=== PATIENT | male | born 1960 | race Caucasian/White ===

== ENCOUNTER 2019-12-26 18:00 | Emergency (ER) | payer BC, SELFPAY ==
[2019-12-26 18:08] VITALS: BP 169/103; PULSE 103; RESP 18; TEMP 37.1; O2SAT 95
--- NOTE | 2019-12-26 18:15 | DI.RAD_ITS ---
EXAM: XR HIP RT COMPLETE AP PELVIS CLINICAL HISTORY: Hip pain TECHNIQUE: COMPARISON: No exams were available for comparison FINDINGS: Two views were obtained. No hip fracture seen. Mild narrowing cartilaginous joint spaces of both hi ps noted superiorly. Mild acetabular spurring and subchondral sclerosis. IMPRESSION: Degenerative changes. No evidence of acute fracture.
--- NOTE | 2019-12-26 18:17 | ED.GENADUL_ITS ---
Discharge Plan Disposition Patient Disposition: HOME Condition: Stable Discharge Details Chief Complaint: Orthopedic Clinical Impression: Degenerative joint disease of right hip Primary Care Provider: Elly Bravo ED Provider: Dixie Shultz Discharge Instructions Instructions: Hip Pain (ED) Additional Instructions: Follow up with primary care provider in 3-5 days. Return to ED sooner if any worsening or concerns. Increase oral fluids. Please take Tylenol or Ibuprofen with food every 4-6 hours as needed for pain and swelling. Your x-ray shows moderate degenerative changes of the right hip hypertrophic bony changes of the Acetabelum most evident laterally. Mild narrowing of the right hip compartment. D-dimer lab we becky today was within normal limits. We cannot definitively rule out DVT as ultrasound is unavailable on the evenings and weekends. Please follow-up with your PCP Sunday to schedule an outpatient ultrasound as needed. Please return to the ED for any worsening or concerns. Referrals: Elly Bravo, ICU STAFF NURSE [Primary Care Provider] - Medical Decision Making 59-year-old male presents to the ED with a complaint of right hip pain and thigh swelling which he noticed approximately 8 days ago. He states that pain is worsened with movement in the a.m. when getting out of bed. He denies any trauma or falls. He was seen at [facility] today by his PCP who sent him here for rule out DVT and further evaluation. He denies any chest pain or shortness of breath. Negative Homans sign. He does have some posterior thigh swelling which is nontender to palpation, non-erythemic, non-warm. He denies any recent long trips in a plane or car, no recent travel. He is an everyday smoker. D-dimer is within normal limits. At this time I do not think with clinical picture that this is not a DVT although without ultrasound this cannot be definitively ruled out at this time. Is not consistent with cellulitis. No fever no area of induration, nontender to palpation. Imaging protocol: XR Right hip with pelvis when performed. Views: 2 or 3 views. COMPARISON: No relevant prior studies available. FINDINGS: Bones/joints: Bone mineralization is normal. No acute fracture is identified in the pelvis or right hip. There hypertrophic bony changes of the acetabulum most evident laterally at the anterior inferior iliac spine. There is mild narrowing of the right hip superior joint compartment. No blastic or bony destructive lesions are identified. There is no evidence of dislocation of either hip, symphysis pubis or sacroiliac joints. There are moderate degenerative changes of the lower visualized lumbar spine. Soft tissues: Unremarkable. IMPRESSION: Moderate degenerative changes of the right hip. Discussed results with patient and home care, verbalized understanding. Instructed to alternate ibuprofen and Tylenol or naproxen alternate ice and heat. Return to the ED for any chest pain, shortness of breath worsening swelling or any concerns. Discussed the need to follow-up with PCP for an outpatient ultrasound. Verbalized understanding. Differential diagnosis includes but not limited to DVT, groin strain, degenerative joint disease, hamstring strain, HPI General Mode of arrival: ambulatory . Date/Time Provider Initiated Documentation: 12/26/19 18:01 . Limitations to Documentation: no limitations . Information obtained by: patient . HPI Narrative: 59-year-old male presents to the ED with a complaint of right hip pain and thigh swelling which he noticed approximately 8 days ago. He states that pain is worsened with movement in the a.m. when getting out of bed. He denies any trauma or falls. He was seen at [facility] by his PCP who sent him here for rule out DVT and further evaluation. He denies any chest pain or shortness of breath. Negative Homans sign. He denies any recent long trips in a plane or car, no recent travel. He is an everyday smoker. Related Data Allergies Allergy/AdvReac Type Severity Reaction Status Date / Time No Known Allergies Allergy Unverified 12/26/19 17:24 General Stated Complaint: Orthopedic SUDEEP: 3 Review of Systems Narrative: Constitutional: Negative for weight loss, alert and oriented, well groomed, normal body habitus, appears comfortable. HEENT: Denies trauma, headaches, blurry vision, nasal discharge, sore throat, trouble swallowing. Chest: Denies chest pain, palpitations, irregular rhythm, hypertension. Respiratory: Denies Shortness of breath, cough, hemoptysis. GI: Denies abdominal pain, nausea, vomiting, diarrhea, constipation. : Denies dysuria, hematuria, flank pain, rectal bleeding. Extremities: Complaining of right thigh and hip pain Neuro: Denies dizziness, blurry vision, weakness, syncope, headache or facial numbness. Hematologic: Denies easy bruising, intolerance to heat or cold, hair loss. All systems reviewed & are unremarkable except as noted in HPI and below PFSH Social History Smoking/Tobacco Use Status: Current every day Tobacco Type: cigarettes Tobacco: How many years used: 30 Alcohol Intake: current Alcohol Intake frequency: 3 or more drinks per day Drug use: Never Substance use type: does not use Do you feel safe at home: Yes Do you feel safe in your relationship?: Yes Exam Narrative Exam Narrative: Constitutional: Alert and oriented x3. Appears stated age. Normal body habitus. Head: Normocephalic, no trauma. Eyes: Pupils PERRLA, Red reflex noted, EOM's intact. Eyelids symmetrical without lesions, discharge, or swelling. ENT: Bilateral TM's WNL, External ear normal to inspection, no mastoid TTP, swelling, or erythema, Nasal turbinates WNL, no nasal discharge. Normal dentition, Posterior pharynx WNL, no exudate. Chest: RRR, Normal S1, S2, distal pulses intact. Resp: Lungs clear to auscultation bilaterally, no wheezes, rales, or rhonchi. Musculoskeletal: Normal gait, 5/5 strength to all four extremities. Negative Homans sign right leg. Nontender right hip to palpation. Intact dorsal pedal pulses. Skin: No suspicious rashes or lesions. Capillary refill less than 2 sec. Neurologic: Cranial nerves II-XII intact. Alert and oriented x 3. DTR's intact. Hematologic/Lymphatic: No ecchymosis, no lymphadenopathy. Course Vital Signs Vital signs: Vital Signs Temperature 37.1 C 12/26/19 18:08 Pulse 103 H 12/26/19 18:08 Respiratory Rate 18 12/26/19 18:08 Blood Pressure 169/103 H 12/26/19 18:08 Pulse Oximetry 95 12/26/19 18:08 Temperature 37.1 C 12/26/19 18:08 Temperature Source Temporal Artery Scan 12/26/19 18:08 Pulse 103 H 12/26/19 18:08 Respiratory Rate 18 12/26/19 18:08 Respiratory Effort 12/26/19 18:11 Blood Pressure 169/103 H 12/26/19 18:08 Pulse Oximetry 95 12/26/19 18:08 Oxygen Delivery Method Room Air 12/26/19 18:08 Oxygen Flow Rate 0 12/26/19 18:08
--- NOTE | 2019-12-26 19:11 | DI.VRAD_ITS ---
PROCEDURE INFORMATION: Exam: XR Right Hip with Pelvis when Performed Exam date and time: 12/26/2019 6:51 PM Age: 59 years old Clinical indication: Hip pain; Right hip TECHNIQUE: Imaging protocol: XR Right hip with pelvis when performed. Views: 2 or 3 views. COMPARISON: No relevant prior studies available. FINDINGS: Bones/joints: Bone mineralization is normal. No acute fracture is identified in the pelvis or right hip. There hypertrophic bony changes of the acetabulum most evident laterally at the anterior inferior iliac spine. There is mild narrowing of the right hip superior joint compartment. No blastic or bony destructive lesions are identified. There is no evidence of dislocation of either hip, symphysis pubis or sacroiliac joints. There are moderate degenerative changes of the lower visualized lumbar spine. Soft tissues: Unremarkable. IMPRESSION: Moderate degenerative changes of the right hip. Dictated and Authenticated by: Jay Groves MD. Ordering:JACKIE Colin MD
[2019-12-26 19:14] LABS: D-Dimer 379 ng/mlFEU (<500)
== END 2019-12-26 19:55 | disposition home or self-care (01) ==
PROVIDERS: Emergency Provider Registered Nurse Emergency; PCP Nurse Practitioner
DX: M16.11 Unilateral primary osteoarthritis, right hip (principal); R22.41 Localized swelling, mass and lump, right lower limb
CPT/HCPCS: 36415; 99284; 73502; 85379

== ENCOUNTER 2019-12-29 09:08 | Outpatient (CLI) | payer BC, SELFPAY ==
--- NOTE | 2019-12-29 11:00 | DI.US_ITS ---
EXAM: US LOWER EXTREMITY VENOUS RT CLINICAL HISTORY: right leg pain and swelling, M79.604, M79.89, ? DVT. TECHNIQUE: Ultrasound performed using standard protocol. COMPARISON: No exams were available for comparison FINDINGS: Duplex venous ultrasound was performed according to the usual protocol. The deep veins are freely com pressible throughout and there is normal flow augmentation with manual calf compression. 2D and Doppl er evaluation are unremarkable. IMPRESSION: No evidence of deep venous thrombosis of the right lower extremity DATA REPOSITORY:
== END 2019-12-29 09:28 ==
PROVIDERS: PCP Nurse Practitioner; Visit Provider Nurse Practitioner Family
DX: M79.604 Pain in right leg (principal); R22.41 Localized swelling, mass and lump, right lower limb
CPT/HCPCS: 93971

== ENCOUNTER 2020-02-02 02:16 | Outpatient (CLI) | payer BC, SELFPAY ==
[2020-02-02 12:33] LABS: Hemoglobin A1C 5.3 % (3.8-5.6)
[2020-02-02 12:59] LABS: Calculated LDL 105 mg/dL (<100); Cholesterol 201 mg/dL (<200); HDL Cholesterol 77 mg/dL (40-60); Triglyceride 96 mg/dL (<150)
== END 2020-02-02 02:36 ==
PROVIDERS: PCP Nurse Practitioner; Visit Provider Nurse Practitioner
DX: Z13.6 Encounter for screening for cardiovascular disorders (principal); Z13.1 Encounter for screening for diabetes mellitus
CPT/HCPCS: 36415; 80061; 83036

== ENCOUNTER 2020-02-27 09:28 | Outpatient (CLI) | payer BC, SELFPAY ==
--- NOTE | 2020-02-27 08:45 | DI.RAD_ITS ---
EXAM: XR LUMBAR SPINE COMPLETE CLINICAL HISTORY: eval back etiology of RLE weakness. TECHNIQUE: 2D digital imaging was performed. COMPARISON: No exams were available for comparison FINDINGS: There is mild anterior wedging of the T12 vertebral body. Degenerative disc changes are seen through out. There are endplate osteophytes throughout. There is moderate narrowing of the L3-4 through L5 -S1 disc spaces. No spondylolysis or spondylolisthesis is seen. Facet degenerative changes are pres ent, greatest from L3-4 through L5-S1. IMPRESSION: Degenerative changes, greatest from L3-4 through L5-S1. Mild T12 compression fracture which appears old. DATA REPOSITORY: RADIATION DOSE DELIVERED:
== END 2020-02-27 09:48 ==
PROVIDERS: PCP Nurse Practitioner; Referring Provider Nurse Practitioner; Visit Provider Student in an Organized Health Care Education/Training Program
DX: R29.898 Other symptoms and signs involving the musculoskeletal system (principal); M51.36 Other intervertebral disc degeneration, lumbar region; M51.37 Other intervertebral disc degeneration, lumbosacral region
CPT/HCPCS: 72110

== ENCOUNTER 2020-03-08 01:52 | Outpatient (CLI) | payer BC, SELFPAY ==
--- NOTE | 2020-03-08 06:45 | DI.MRI_ITS ---
EXAM: MR LUMBAR SPINE WO CLINICAL HISTORY: BACK PAIN,RT LEG WEAKNESS,R29.898,M54.9. TECHNIQUE: Multiplanar multisequence MRI of the Lumbar spine was performed. COMPARISON: CR XR LUMBAR SPINE COMPLETE from 02/27/2020 FINDINGS: Bones: The last intervertebral disc space is designated the L5/S1 level for the numbering purpose of this examination. There is an old compression deformity of the superior endplate of T12. Alignment is satisfactory. Degenerative endplate signal changes are seen at L1-L2 and L4-L5. Cord: The conus tip ends at the T12 level. It is of normal size and signal intensity. T12-L1: No disc herniations or bulges are present. No central spinal canal or neural foraminal stenos is. L1-2: There is a mild diffuse disc bulge. No focal disc herniation or central spinal canal stenosis. Mild bilateral neural foraminal stenosis. L2-3: There is a diffuse disc bulge. There is an annular tear seen posteriorly. There are degenerat zainab changes of the facets and hypertrophy of the ligamentum flavum. These all contribute to cause mo derate central spinal canal stenosis. Mild bilateral neural foraminal stenosis. L3-4: There is a diffuse disc bulge. There are hypertrophic changes of the facets and ligamentum fla vum. There is a small synovial cyst on the right projecting into the spinal canal. These all contri bute to cause moderate to severe central spinal canal stenosis. Mild bilateral neural foraminal sten osis. L4-5: There is a diffuse disc bulge. There is a right synovial cyst or right paracentral disc hernia tion causing right lateral recess stenosis and compressing the right L5 nerve root. No central spina l canal stenosis is seen. There is mild left neural foraminal stenosis. L5-S1: No disc herniations or bulges are present. No central spinal canal or neural foraminal stenosi s. Soft tissues: The visualized SI joints and sacrum are well maintained. The paraspinal soft tissues ar e unremarkable. IMPRESSION: 1. Right synovial cyst or right paracentral disc herniation at L4-L5 causing right lateral recess siobhan nosis and compressing the right L5 nerve root. 2. Multilevel degenerative changes in the lumbar spine causing neural foraminal and central spinal ca nal stenosis. Findings are most marked at L2-3 and L3-L4. 3. Old T12 compression deformity. DATA REPOSITORY:
== END 2020-03-08 02:12 ==
PROVIDERS: PCP Nurse Practitioner; Visit Provider Student in an Organized Health Care Education/Training Program
DX: M71.38 Other bursal cyst, other site; M47.816 Spondylosis without myelopathy or radiculopathy, lumbar region; M48.061 Spinal stenosis, lumbar region without neurogenic claudication; M54.9 Dorsalgia, unspecified; R29.898 Other symptoms and signs involving the musculoskeletal system
CPT/HCPCS: 72148

== ENCOUNTER 2020-03-18 00:51 | Outpatient (CLI) | payer BC, SELFPAY ==
--- NOTE | 2020-03-18 07:30 | DI.RAD_ITS ---
EXAM: RF JOINT INJECTION FLUORO GUID CLINICAL HISTORY: RT HIP INJ, RT HIP PAIN,RT LEG WEAKNESS,M25.551,R29.898. TECHNIQUE: 2D and realtime digital imaging was performed. COMPARISON: No exams were available for comparison FINDINGS: Fluoroscopy was provided for guidance with performing a right hip injection. Degenerative changes of the right hip are noted. Please see procedure note for details. Fluoro time: 3 sec, 7.77 mGy RADIATION DOSE DELIVERED:
--- NOTE | 2020-03-18 13:15 | W.PROCNOTE ---
Date of service: 03/18/20 Time of Service: 13:16 Procedure Note Date of procedure: 03/18/20 Procedure: Right Hip Injection with Fluoroscopic Guidance Surgeon/Proceduralist/Physician: Roc Lazcano Procedure Diagnosis: Right Hip Osteoarthritis Procedure Indications: Dev has had persistent pain of the RIGHT hip and groin. Noninvasive measures have been tried. To serve as both diagnostic and therapeutic, an injection under fluoroscopy was recommended. I had discussed the risks of the procedure and the patient elected to proceed. Procedure Description: Dev was greeted in the flouroscopy room. The correct side was identified and the consent was reviewed with the patient and signed. The patient was then placed in the supine position on the fluoroscopy table. The RIGHT hip was then prepped with Chloraprep. The anterolateral injection starting point was identiifed by bony landmarks and fluoroscopy. The skin and soft tissue in the tract of the injection was anesthetized with 1% Lidocaine. A spinal needle was then inserted deep into the hip joint at the level of the lateral femoral neck under fluoroscopic guidance. A small amount of Omnipaque solution was injected to confirm intraarticular placement. Once confirmed, the hip was injected with 6cc of 0.5% Bupivicaine and 80mg of Depo-Medrol. A bandaid was placed on the injection site. The patient tolerated the procedure well and noted improvement in pre-injection pain.
[2020-03-18] MEDS: Bupivacaine 0.5% Pres-Free 10 ML VIAL 6 ML IJ (14:01)
[2020-03-18] MEDS: Omnipaque 300 MG/ML 10 ML BTL IJ (14:02)
[2020-03-18] MEDS: methylPREDNISolone ACETATE 40 MG/ML VIAL IM (14:03)
== END 2020-03-18 01:11 ==
PROVIDERS: PCP Nurse Practitioner; Visit Provider Student in an Organized Health Care Education/Training Program
DX: M25.551 Pain in right hip (principal); M16.11 Unilateral primary osteoarthritis, right hip; R10.31 Right lower quadrant pain
CPT/HCPCS: 20610; 77002; J1030

== ENCOUNTER 2025-02-09 12:42 | Outpatient (CLI) | payer BC, MEDICARE, SELFPAY ==
--- NOTE | 2025-02-09 11:30 | DI.US_ITS ---
Exam(s) US BREAST RT LIMITED EXAM: US BREAST RT LIMITED CLINICAL HISTORY: N61.0 Mastitis w/o abcess,infection TECHNIQUE: Limited ultrasound of the right breast was performed using standard protocol. COMPARISON: No exams were available for comparison FINDINGS: There is no cystic or solid mass present. No focal fluid collection is seen to suggest an abscess. There is edema seen in the soft tissues with mild increased vascularity consistent with a mastitis and cellulitis. IMPRESSION: Findings consistent with a mastitis/cellulitis of the right chest. No focal fluid collection is seen to suggest an abscess. DATA REPOSITORY:
== END 2025-02-09 13:02 ==
PROVIDERS: Visit Provider Physician Assistant
DX: N61.0 Mastitis without abscess (principal)
CPT/HCPCS: 76642